=== PATIENT | male | born 1970 | race Caucasian/White ===

== ENCOUNTER 2017-10-19 20:12 | Emergency (ER) | payer MEDICAID, OTHER ==
[2017-10-19 20:23] VITALS: BMI 32.6
--- NOTE | 2017-10-19 20:24 | ED PDOC ---
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 gluteal fold swelling lump x 3 days with no fall or trauma. Pt. stated that it started off as small pimple, now more painful, no fever or chills, no night sweat, no rash, no weight loss, no night sweat, no dizziness, no other medical or psychological complaints. Past Medical History - Provider Review Nursing Documentation Reviewed: Yes - Infectious Disease Hx of Infectious Diseases: None - Tetanus Immunization Tetanus Immunization: Unknown - Past Medical History Past Medical History: No Previous - Cardiac Hx Cardiac Disorders: No - Pulmonary Hx Respiratory Disorders: No - Neurological Hx Neurological Disorder: No - HEENT Hx HEENT Disorder: No - Renal Hx Renal Disorder: Yes Hx Kidney Stones: Yes - Endocrine/Metabolic Hx Endocrine Disorders: No - Hematological/Oncological Hx Blood Disorders: No - Integumentary Hx Dermatological Disorder: No - Musculoskeletal/Rheumatological Hx Musculoskeletal Disorders: No - Gastrointestinal Hx Gastrointestinal Disorders: No - Genitourinary/Gynecological Hx Genitourinary Disorders: No - Psychiatric Hx Psychophysiologic Disorder: No Hx Substance Use: No (marijuana) - Past Surgical History Past Surgical History: No Previous - Surgical History Other/Comment: kidney stones removed - Anesthesia Hx Anesthesia: Yes Hx Anesthesia Reactions: No Hx Malignant Hyperthermia: No - Suicidal Assessment Feels Threatened In Home Enviroment: No Family/Social History - Physician Review Nursing Documentation Reviewed: Yes Family/Social History: Unknown Family HX Smoking Status: Current Some Days Smoker Hx Alcohol Use: No Hx Substance Use: No (marijuana) Allergies/Home Meds Allergies/Adverse Reactions: Allergies No Known Allergies Allergy (Verified 10/19/17 20:22) Home Medications: Home Meds Medication Instructions Recorded Confirmed Gabapentin [Neurontin] 1 cap PO TID 10/19/17 10/19/17 Review of Systems - Review of Systems Constitutional: absent: Fatigue, Fevers Eyes: absent: Vision Changes ENT: absent: Hearing Changes Respiratory: absent: SOB, Cough Cardiovascular: absent: Chest Pain Gastrointestinal: absent: Abdominal Pain, Nausea, Vomiting Skin: Rash, Skin Lesions, Cellulitis. absent: Pruritis, Laceration, Abscess, Ulcer Neurological: absent: Headache, Dizziness Physical Exam Vital Signs Reviewed: Yes Vital Signs Temp Pulse Resp BP Pulse Ox 10/19/17 20:24 98.7 F 89 18 136/86 98 Temperature: Afebrile Blood Pressure: Normal Pulse: Regular Respiratory Rate: Normal Appearance: Positive for: Well-Appearing, Non-Toxic, Comfortable Pain Distress: None Mental Status: Positive for: Alert and Oriented X 3 - Systems Exam Head: Present: Atraumatic, Normocephalic Pupils: Present: PERRL Extroacular Muscles: Present: EOMI Conjunctiva: Present: Normal Mouth: Present: Moist Mucous Membranes Neck: Present: Normal Range of Motion Respiratory/Chest: Present: Clear to Auscultation, Good Air Exchange. No: Respiratory Distress, Accessory Muscle Use Cardiovascular: Present: Regular Rate and Rhythm, Normal S1, S2. No: Murmurs Abdomen: Present: Normal Bowel Sounds. No: Tenderness, Distention, Peritoneal Signs Back: Present: Normal Inspection Upper Extremity: Present: Normal Inspection. No: Cyanosis, Edema Lower Extremity: Present: Normal Inspection. No: Edema Neurological: Present: GCS=15, Speech Normal, Motor Func Grossly Intact, Gait Normal, Memory Normal Skin: Present: Warm, Dry, Rashes (rt. gluteal fold visible approx. 3cm diameter cellulitis with erythematous and firm with no fluctuancy noted, no streaking or ulcers, no regional lymphenapathy), Normal Color Psychiatric: Present: Alert, Oriented x 3, Normal Insight, Normal Concentration Medical Decision Making ED Course and Treatment: 10/19/17 20:38 -bed side sonogram performed by mt which there is no visible fluid filled abscess noted. -keflex/bactrim ds/motrin -Discharge home with keflex, bactrim ds, motrin, stay hydrated, bed rest, heat compression, follow up with your own pmd or general surgeon within 2 days for wound check and see if drainage will be needed at that time, return to the ER for any new or worsening signs or symptoms. - PA / CIVIL PREPAREDNESS OFFICER / Resident Statement / has reviewed & agrees with the documentation as recorded. Disposition/Present on Arrival - Present on Arrival Any Indicators Present on Arrival: No History of DVT/PE: No History of Uncontrolled Diabetes: No Urinary Catheter: No History of Decub. Ulcer: No History Surgical Site Infection Following: None - Disposition Have Diagnosis and Disposition been Completed?: Yes Diagnosis: Cellulitis, Carbuncle Disposition: HOME/ ROUTINE Disposition Time: 20:40 Patient Plan: Discharge Condition: GOOD Discharge Instructions (ExitCare): Cellulitis (ED) Additional Instructions: -Discharge home with keflex, bactrim ds, motrin, stay hydrated, bed rest, heat compression, follow up with your own pmd or general surgeon within 2 days for wound check and see if drainage will be needed at that time, return to the ER for any new or worsening signs or symptoms. Prescriptions: Cephalexin [cephalexin] 500 mg PO QID #40 cap Ibuprofen [Motrin] 600 mg PO QID PRN #35 tab PRN Reason: Other Sulfamethoxazole/Trimethoprim [Bactrim Ds Tablet] 1 each PO BID #20 tablet Referrals: Elizabeth Patel, [Primary Care Provider] - Follow up with primary Urban Garcia MD [Staff Provider] - [place] up [place] [facility] [place] [facility] [place] - Follow up with primary Forms: WORK NOTE
[2017-10-19 20:25] VITALS: BP 136/86; PULSE 89; RESP 18; TEMP 98.7; O2SAT 98
[2017-10-19] MEDS ORDERED: Tmp-Smz 800 mg-160 mg DS Tab PO STA (20:36)
== END 2017-10-19 20:59 | disposition home or self-care (01) ==
LOC: ED 20:12
DX: L02.93 Carbuncle, unspecified (principal); L03.317 Cellulitis of buttock

== ENCOUNTER 2018-11-12 00:01 | Emergency (ER) | payer MEDICAID ==
[2018-11-12 00:02] VITALS: BMI 32.6
[2018-11-12 00:31] VITALS: RESP 16
--- NOTE | 2018-11-12 01:01 | ED PDOC ---
Arrival/HPI - General Chief Complaint: Lower Extremity Problem/Injury Time Seen by Provider: 11/12/18 00:06 Historian: Patient - History of Present Illness Narrative History of Present Illness (Text): 11/12/18 00:56 47-year-old male presents today with right foot and ankle pain as well as left ankle pain status post injury. Patient states his right ankle got twisted in the rung of the latter and his left ankle twisted awkwardly. Patient states he did not fall off of the ladder he caught himself and another friend was able to grab him from the buttocks and hold him from falling. Patient states the pain in the right ankle has been gradually increasing over the past few hours. Patient took 800 mg of Motrin without improvement in the symptoms. Patient denies numbness weakness or tingling in the extremity no headaches dizziness or weakness. No chest pain or shortness of breath. Patient denies abdominal pain. No nausea vomiting diarrhea constipation. No other complaints Time/Duration: 1-3 hours Symptom Onset: Gradual Symptom Course: Worsening Quality: Aching Past Medical History - Provider Review Nursing Documentation Reviewed: Yes - Travel History Have you recently traveled outside [place] w/in the past 3 mons?: No - Infectious Disease Hx of Infectious Diseases: None - Tetanus Immunization Tetanus Immunization: Unknown - Past Medical History Past Medical History: No Previous - Cardiac Hx Cardiac Disorders: No - Pulmonary Hx Respiratory Disorders: No - Neurological Hx Neurological Disorder: No - HEENT Hx HEENT Disorder: No - Renal Hx Renal Disorder: Yes Hx Kidney Stones: Yes - Endocrine/Metabolic Hx Endocrine Disorders: No - Hematological/Oncological Hx Blood Disorders: No - Integumentary Hx Dermatological Disorder: No - Musculoskeletal/Rheumatological Hx Musculoskeletal Disorders: No - Gastrointestinal Hx Gastrointestinal Disorders: No - Genitourinary/Gynecological Hx Genitourinary Disorders: No - Psychiatric Hx Psychophysiologic Disorder: No Hx Substance Use: Yes (marijuana) - Past Surgical History Past Surgical History: No Previous - Surgical History Other/Comment: kidney stones removed - Anesthesia Hx Anesthesia: Yes Hx Anesthesia Reactions: No Hx Malignant Hyperthermia: No - Suicidal Assessment Feels Threatened In Home Enviroment: No Family/Social History - Physician Review Nursing Documentation Reviewed: Yes Family/Social History: Unknown Family HX Smoking Status: Current Some Days Smoker Hx Alcohol Use: No Hx Substance Use: Yes (marijuana) Allergies/Home Meds Allergies/Adverse Reactions: Allergies No Known Allergies Allergy (Verified 10/19/17 20:22) Review of Systems - Review of Systems Constitutional: absent: Fatigue, Fevers Respiratory: absent: SOB, Cough Cardiovascular: absent: Chest Pain, Palpitations Gastrointestinal: absent: Abdominal Pain, Nausea, Vomiting Genitourinary Male: absent: Dysuria Musculoskeletal: Arthralgias. absent: Back Pain, Neck Pain Skin: absent: Rash, Pruritis Neurological: absent: Headache, Dizziness Psychiatric: absent: Anxiety, Depression Physical Exam Vital Signs Reviewed: Yes Vital Signs Temp Pulse Resp BP Pulse Ox 11/12/18 00:30 98.1 F 79 16 103/73 95 Temperature: Afebrile Blood Pressure: Normal Pulse: Regular Respiratory Rate: Normal Appearance: Positive for: Well-Appearing, Non-Toxic, Comfortable Pain Distress: None Mental Status: Positive for: Alert and Oriented X 3 - Systems Exam Head: Present: Atraumatic Mouth: Present: Moist Mucous Membranes Neck: Present: Normal Range of Motion Respiratory/Chest: Present: Clear to Auscultation Cardiovascular: Present: Regular Rate and Rhythm, Normal S1, S2. No: Murmurs Abdomen: No: Tenderness, Distention Back: Present: Normal Inspection Upper Extremity: Present: Normal ROM Lower Extremity: Present: NORMAL PULSES, Normal ROM, Tenderness (right ankle: + ttp over lateral malleolus; +ttp over dorsal foot; minimal edema noted to lateral malleolus; full rom of ankle with pain; sensation and distal pulses intact. cap refill <2. yeung test negative bilaterally. left ankle; + ttp over medial malleolus; no dorsal foot tenderness. no calf tenderness. sensation and distal pulses intact. cap refill <2. ), Swelling, Neurovascularly Intact, Capillary Refill < 2 s. No: CALF TENDERNESS, Erythema, Deformity Neurological: Present: GCS=15, Speech Normal, Motor Func Grossly Intact, Normal Sensory Function Skin: Present: Warm, Dry, Normal Color. No: Rashes Psychiatric: Present: Alert, Oriented x 3 Medical Decision Making ED Course and Treatment: 11/12/18 01:07 Patient nontoxic well-appearing in no distress with stable vital signs X-rays of the right ankle: No fracture X-rays of the right foot: No fracture X-rays of the left ankle: No fracture Tylenol p.o. Right ankle and right foot placed in short leg posterior splint. crutches given for ambulation. left ankle given aircast. I discussed all results in depth with the patient advised to followup with the orthopedist within the next 2 days. Advised return if symptoms worsen persist or new symptoms develop I advised the patient that although the xrays show no fracture; there is still a possibility for ligamentous or tendon injury the patient must see the orthopedist for further evaluation Patient verbalizes understanding of discharge instructions and need for immediate followup. All aspects of this case were discussed the attending of record. Impression: Ankle pain, foot pain Motrin every 6 hours as needed for pain. Rest, ice, compression, elevation Use crutches for ambulation Followup with the orthopedist within the next 2 days Followup with primary care physician within the next 2 days Return if symptoms worsen persist or if new symptoms develop Reassessment Condition: Re-examined, Improved - RAD Interpretation Radiology Orders: 11/12/18 00:43 ANKLE COMPLETE 3 VIEWS BI [RAD] Stat FOOT RIGHT 3 VIEWS ROUTINE [RAD] Stat - Medication Orders Current Medication Orders: Discontinued Medications Acetaminophen (Tylenol 325mg Tab) 650 mg PO STAT STA Stop: 11/12/18 00:45 Procedures - Splinting Location: right ankle/foot Hand-Made Type: fiberglass Splint: posterior short leg splint Pre-Proc Neuro Vasc Exam: normal Post-Proc Neuro Vasc Exam: normal Disposition/Present on Arrival - Present on Arrival Any Indicators Present on Arrival: No History of DVT/PE: No History of Uncontrolled Diabetes: No Urinary Catheter: No History of Decub. Ulcer: No History Surgical Site Infection Following: None - Disposition Have Diagnosis and Disposition been Completed?: Yes Diagnosis: Ankle pain, Foot pain Disposition: HOME/ ROUTINE Disposition Time: 01:09 Patient Plan: Discharge Condition: GOOD Discharge Instructions (ExitCare): Ankle Sprain (DC), Foot Sprain (DC) Additional Instructions: Motrin every 6 hours as needed for pain. Rest, ice, compression, elevation Use crutches for ambulation Followup with the orthopedist within the next 2 days Followup with primary care physician within the next 2 days Return if symptoms worsen persist or if new symptoms develop Prescriptions: Ibuprofen [Motrin] 600 mg PO Q6H PRN #20 tab PRN Reason: pain/fever reduction Referrals: Apolinar Gifford DO [Staff Provider] - Follow up with primary Josephine Scruggs DPM [Staff Provider] - Follow up with primary [facility] [place] [Outside] - Follow up with primary [facility] [Outside] - Follow up with primary Forms: [employer] (Nicaraguan), WORK NOTE
[2018-11-12 02:20] VITALS: BP 103/69; PULSE 72; TEMP 97.8; O2SAT 98
--- NOTE | 2018-11-12 10:24 | RAD ---
Date of service: 11/12/2018 PROCEDURE: Bilateral Ankle Radiographs. HISTORY: ankle pain COMPARISON: None available. FINDINGS: BONES: Right Ankle: Normal. No fracture. Left Ankle: Normal. No fracture. JOINTS: Right Ankle: Normal. No osteoarthritis. Ankle mortise maintained. Talar dome intact. Left Ankle: Normal. No osteoarthritis. Ankle mortise maintained. Talar dome intact. SOFT TISSUES: Right Ankle: Normal. Left Ankle: Normal. OTHER FINDINGS: None. IMPRESSION: Normal bilateral ankle radiographs.
--- NOTE | 2018-11-12 10:26 | RAD ---
Date of service: 11/12/2018 PROCEDURE: Right Foot Radiographs. HISTORY: foot pain COMPARISON: None. FINDINGS: BONES: Normal. No fracture. There is a small osteophyte arising from the talar neck JOINTS: Normal. SOFT TISSUES: Normal. OTHER FINDINGS: None. IMPRESSION: Negative study
== END 2018-11-12 02:19 | disposition home or self-care (01) ==
LOC: ED 00:01
DX: M25.571 Pain in right ankle and joints of right foot (principal); M25.572 Pain in left ankle and joints of left foot

== ENCOUNTER 2019-01-26 14:07 | Emergency (ER) | payer MEDICAID, OTHER ==
[2019-01-26 14:08] VITALS: BMI 32.6
[2019-01-26 14:13] VITALS: TEMP 98.2
[2019-01-26] MEDS ORDERED: Sodium Chloride 0.9% 1,000 ML IV STA (14:34)
--- NOTE | 2019-01-26 14:39 | ED PDOC ---
Arrival/HPI - General Chief Complaint: Abdominal Pain Time Seen by Provider: 01/26/19 14:12 Historian: Patient - History of Present Illness Narrative History of Present Illness (Text): 01/26/19 14:34 48 year old male, whose past medical history includes, presents to the emergency department complaining of lower abdominal pain since yesterday. Patient states his pain feels similar to previous experience with kidney stones. He notes the pain originated in his back yesterday but today it more flank pain radiating to groin. Patient reports an unsteady stream as he is urinating and a secondary symptom of diarrhea. He denies fevers, chills, headache, dizziness, chest pain, shortness of breath, dyspnea on exertion, cough, nausea, vomiting, neck pain, or any other complaint. Time/Duration: 24 hours Symptom Onset: Gradual Symptom Course: Unchanged Activities at Onset: Light Context: Home Past Medical History - Provider Review Nursing Documentation Reviewed: Yes - Infectious Disease Hx of Infectious Diseases: None - Tetanus Immunization Tetanus Immunization: Unknown - Past Medical History Past Medical History: No Previous - Cardiac Hx Cardiac Disorders: No - Pulmonary Hx Respiratory Disorders: No - Neurological Hx Neurological Disorder: No - HEENT Hx HEENT Disorder: No - Renal Hx Renal Disorder: Yes Hx Kidney Stones: Yes - Endocrine/Metabolic Hx Endocrine Disorders: No - Hematological/Oncological Hx Blood Disorders: No - Integumentary Hx Dermatological Disorder: No - Musculoskeletal/Rheumatological Hx Musculoskeletal Disorders: No - Gastrointestinal Hx Gastrointestinal Disorders: No - Genitourinary/Gynecological Hx Genitourinary Disorders: No - Psychiatric Hx Psychophysiologic Disorder: No Hx Substance Use: Yes (marijuana) - Past Surgical History Past Surgical History: No Previous - Surgical History Other/Comment: kidney stones removed - Anesthesia Hx Anesthesia: Yes Hx Anesthesia Reactions: No Hx Malignant Hyperthermia: No - Suicidal Assessment Feels Threatened In Home Enviroment: No Family/Social History - Physician Review Nursing Documentation Reviewed: Yes Family/Social History: No Known Family HX Smoking Status: Current Some Days Smoker Hx Alcohol Use: No Hx Substance Use: Yes (marijuana) Allergies/Home Meds Allergies/Adverse Reactions: Allergies No Known Allergies Allergy (Verified 10/19/17 20:22) Review of Systems - Physician Review All systems were reviewed & negative as marked: Yes - Review of Systems Constitutional: absent: Fevers Cardiovascular: absent: Chest Pain Physical Exam - Physical Exam Narrative Physical Exam (Text): 01/26/19 14:39 Constitutional: No acute distress. Head: Normocephalic. Atraumatic. Eyes: PERRL. ENT: Moist mucous membranes. Neck: Supple. Cardiovascular: Regular rate. Chest: No tenderness. Respiratory: Clear to auscultation bilaterally. GI: Soft. Nontender. Nondistended. Genitourinary male: no testicular tenderness or edema. Back: No CVA tenderness. Musculoskeletal: No tenderness or swelling of extremities. Skin: No rash. Neurologic: Alert, no focal deficit.] Vital Signs Reviewed: Yes Vital Signs Temp Pulse Resp BP Pulse Ox 01/26/19 14:09 98.2 F 68 16 141/95 H 97 Temperature: Afebrile Blood Pressure: Hypertensive Pulse: Regular Respiratory Rate: Normal Appearance: Positive for: Well-Appearing, Non-Toxic, Comfortable Pain Distress: None Mental Status: Positive for: Alert and Oriented X 3 Medical Decision Making ED Course and Treatment: 01/26/19 14:40 Impression: 48 year old male who presents to the emergency department complaining of abdominal pain. Plan: -- CT of abdomen and pelvis -- Labs -- Flomax -- IV fluids -- Toradol -- Zofran -- Urinalysis -- Reassess and disposition Prior Visits: Notes and results from previous visits were reviewed. Progress Notes: Advised urology follow up. Return to emergency department for worsening pain, fever, dyspnea, intractible vomiting or any other problem. - Lab Interpretations I have reviewed the lab results: Yes - RAD Interpretation [employer] Mechanic: Radiologist - Scribe Statement The provider has reviewed the documentation as recorded by the Latasha Wren Provider Scribe Attestation: All medical record entries made by the Latasha were at my direction and personally dictated by me. I have reviewed the chart and agree that the record accurately reflects my personal performance of the history, physical exam, medical decision making, and the department course for this patient. I have also personally directed, reviewed, and agree with the discharge instructions and disposition. Disposition/Present on Arrival - Present on Arrival Any Indicators Present on Arrival: No History of DVT/PE: No History of Uncontrolled Diabetes: No Urinary Catheter: No History of Decub. Ulcer: No History Surgical Site Infection Following: None - Disposition Have Diagnosis and Disposition been Completed?: Yes Diagnosis: Nephrolithiasis Disposition: HOME/ ROUTINE Disposition Time: 18:14 Patient Plan: Discharge Condition: GOOD Discharge Instructions (ExitCare): Kidney Stones in Adults Additional Instructions: PROCEDURE: CT Abdomen and Pelvis without Oral or IV contrast. HISTORY: flank pain radiating to groin COMPARISON: CT abdomen and pelvis without contrast performed 12/19/15 TECHNIQUE: Contiguous axial images of the abdomen and pelvis. No oral or IV contrast administered. Coronal and Sagittal reformats generated and reviewed. Radiation dose: Total exam DLP = 1000.61 mGy-cm. This CT exam was performed using one or more of the following dose reduction techniques: Automated exposure control, adjustment of the mA and/or kV according to patient size, and/or use of iterative reconstruction technique. FINDINGS: There is limited evaluation of the solid organs without the administration of IV contrast. LOWER THORAX: No visible consolidation, pleural effusion, or pneumothorax. Small hiatal hernia/distal esophageal wall thickening. LIVER: Hypoattenuation of the liver compatible with hepatic steatosis. GALLBLADDER AND BILE DUCTS: Unremarkable unenhanced appearance. PANCREAS: Unremarkable unenhanced appearance. SPLEEN: 15 mm and 7 mm probable splenules. Otherwise unremarkable unenhanced appearance. ADRENALS: Nodular adrenal hypertrophy. KIDNEYS AND URETERS: 3 mm mid right ureteral calculus (series 3, image 96). No hydronephrosis or obstructing renal calculus. Nonobstructing bilateral renal calculi. BLADDER: Under distended urinary bladder appears thick walled. Urachal remnant. REPRODUCTIVE: The prostate measures approximately 4.1 x 4.3 cm and contains coarse calcifications. APPENDIX: The appendix appears within normal limits of caliber. No secondary signs of acute appendicitis. BOWEL: The stomach is nondistended. Lack of oral contrast limits evaluation for bowel pathology. The bowel loops appear within normal limits of caliber without evidence of intestinal obstruction. Diverticulosis without CT evidence of acute diverticulitis. PERITONEUM: No significant free fluid. No definite free air. LYMPH NODES: Sub cm mesenteric and gastrohepatic adenopathy. VASCULATURE: Atherosclerotic calcifications of the aorta. No aortic aneurysm. BONES: Degenerative changes of the spine. OTHER FINDINGS: None. IMPRESSION: 3 mm mid right ureteral calculus. Additional nonobstructing bilateral renal calculi. No hydronephrosis. No hydroureter. Under distended urinary bladder appears mildly thick-walled. Urachal remnant. Patients with a urachal remnant are at increased risk for adenocarcinoma of the bladder. Hepatic steatosis. Diverticulosis without CT evidence of acute diverticulitis. Small hiatal hernia/distal esophageal wall thickening. Prescriptions: Famotidine [Pepcid] 1 tab PO BID #14 tab Ibuprofen [Motrin] 600 mg PO Q6 #25 tab Ondansetron ODT [Zofran ODT] 4 mg PO Q8 #12 odt Tamsulosin [Flomax] 0.4 mg PO DAILY #5 cap Referrals: Genoveva Arguello MD [Primary Care Provider] - Follow up with primary Cristina Aguilar MD [Staff Provider] - Follow up with primary Forms: [employer] (Cam[place]onian)
[2019-01-26 14:46] LABS: URINE APPEARANCE CLEAR (CLEAR); URINE BILIRUBIN NEGATIVE (NEGATIVE); URINE BLOOD SMALL (NEGATIVE); URINE COLOR YELLOW (YELLOW); URINE GLUCOSE (UA) NEGATIVE (NEGATIVE); URINE LEUKOCYTE ESTERASE NEGATIVE Leu/uL (NEGATIVE); URINE PROTEIN NEGATIVE mg/dL (<30 mg/dL); URINE UROBILINOGEN 0.2 E.U./dL (<1 E.U./dL)
[2019-01-26 14:58] LABS: BASO # 0.04 K/mm3 (0.0-2.0); BASO % 0.5 % (0.0-3.0); EOS # 0.6 (0.0-0.7); EOS % 7.2 % (1.5-5.0); HEMOGLOBIN 16.1 g/dL (14.0-18.0); LYMPH # 2.4 (1.2-3.4); LYMPH % 27.9 % (22.0-35.0); MEAN CELL VOLUME 81.1 fl (80.0-105.0); MEAN CORPUSCULAR HEMOGLOBIN 27.2 pg (25.0-35.0); MEAN CORPUSCULAR HGB CONC 33.5 g/dl (31.0-37.0); MEAN PLATELET VOLUME 9.9 fl (7.0-11.0); MONO # 0.8 (0.1-0.6); MONO % 9.9 % (1.0-6.0); RBC 5.92 10^6/uL (3.5-6.1); RED CELL DISTRIBUTION WIDTH 14.4 % (11.5-14.5); WHITE BLOOD COUNT 8.5 10^3/uL (4.5-11.0)
[2019-01-26 15:08] LABS: URINE BACTERIA FEW /hpf; URINE WBC 0 - 2 /hpf (0-6)
[2019-01-26 15:32] LABS: ALB/GLOB RATIO 1.3 (1.1-1.8); ALBUMIN 4.1 g/dL (3.0-4.8); ALT/SGPT 35 U/L (7-56); AST/SGOT 27 U/L (17-59); BLOOD UREA NITROGEN 13 mg/dL (7-21); CALCIUM 8.7 mg/dL (8.4-10.5); GFR NON-AFRICAN AMERICAN > 60
[2019-01-26 16:55] VITALS: PULSE 73; RESP 18
[2019-01-26 17:20] VITALS: BP 150/96; O2SAT 96
--- NOTE | 2019-01-26 17:58 | CT ---
PROCEDURE: CT Abdomen and Pelvis without Oral or IV contrast. HISTORY: flank pain radiating to groin COMPARISON: CT abdomen and pelvis without contrast performed 12/19/15 TECHNIQUE: Contiguous axial images of the abdomen and pelvis. No oral or IV contrast administered. Coronal and Sagittal reformats generated and reviewed. Radiation dose: Total exam DLP = 1000.61 mGy-cm. This CT exam was performed using one or more of the following dose reduction techniques: Automated exposure control, adjustment of the mA and/or kV according to patient size, and/or use of iterative reconstruction technique. FINDINGS: There is limited evaluation of the solid organs without the administration of IV contrast. LOWER THORAX: No visible consolidation, pleural effusion, or pneumothorax. Small hiatal hernia/distal esophageal wall thickening. LIVER: Hypoattenuation of the liver compatible with hepatic steatosis. GALLBLADDER AND BILE DUCTS: Unremarkable unenhanced appearance. PANCREAS: Unremarkable unenhanced appearance. SPLEEN: 15 mm and 7 mm probable splenules. Otherwise unremarkable unenhanced appearance. ADRENALS: Nodular adrenal hypertrophy. KIDNEYS AND URETERS: 3 mm mid right ureteral calculus (series 3, image 96). No hydronephrosis or obstructing renal calculus. Nonobstructing bilateral renal calculi. BLADDER: Under distended urinary bladder appears thick walled. Urachal remnant. REPRODUCTIVE: The prostate measures approximately 4.1 x 4.3 cm and contains coarse calcifications. APPENDIX: The appendix appears within normal limits of caliber. No secondary signs of acute appendicitis. BOWEL: The stomach is nondistended. Lack of oral contrast limits evaluation for bowel pathology. The bowel loops appear within normal limits of caliber without evidence of intestinal obstruction. Diverticulosis without CT evidence of acute diverticulitis. PERITONEUM: No significant free fluid. No definite free air. LYMPH NODES: Sub cm mesenteric and gastrohepatic adenopathy. VASCULATURE: Atherosclerotic calcifications of the aorta. No aortic aneurysm. BONES: Degenerative changes of the spine. OTHER FINDINGS: None. IMPRESSION: 3 mm mid right ureteral calculus. Additional nonobstructing bilateral renal calculi. No hydronephrosis. No hydroureter. Under distended urinary bladder appears mildly thick-walled. Urachal remnant. Patients with a urachal remnant are at increased risk for adenocarcinoma of the bladder. Hepatic steatosis. Diverticulosis without CT evidence of acute diverticulitis. Small hiatal hernia/distal esophageal wall thickening.
== END 2019-01-26 18:26 | disposition home or self-care (01) ==
LOC: ED 14:07
DX: N20.0 Calculus of kidney (principal)
CPT/HCPCS: 74176; 80053; 81001; 85025; 96361; 96374; 96375; 99284; J1885; J2405; J7030